=== PATIENT | male | born 1990 | race Hispanic/Latino ===

== ENCOUNTER 2017-01-29 17:28 | Emergency (ER) | payer OTHER ==
[2017-01-29 17:32] VITALS: BP 139/72; PULSE 97; RESP 18; TEMP 98.1; O2SAT 98
--- NOTE | 2017-01-29 17:39 | ED PDOC ---
Lower Extremity Pain/Injury Time Seen by Provider: 01/29/17 17:31 Chief Complaint (Nursing): Lower Extremity Problem/Injury Chief Complaint (Provider): Right Ankle Injury History Per: Patient History/Exam Limitations: no limitations Onset/Duration Of Symptoms: Hrs Current Symptoms Are (Timing): Still Present Additional Complaint(s): Lance Hdez is a 26 year old male that presents to the ED after he was skateboarding, lost his footing, and fell with his body weight onto his twisted right ankle. His pain radiates to his right dozier and he is currently unable to rotate his right ankle. Past Medical History Reviewed: Historical Data, Nursing Documentation, Vital Signs Vital Signs: Last Vital Signs Temp 98.1 F 01/29/17 17:29 Pulse 97 H 01/29/17 17:29 Resp 18 01/29/17 17:29 BP 139/72 01/29/17 17:29 Pulse Ox 98 01/29/17 17:29 - Surgical History Other surgeries: hernia repair - Family History Family History: States: Unknown Family Hx - Social History Current smoker - smoking cessation education provided: No Alcohol: Social Drugs: Denies - Allergies Allergies/Adverse Reactions: Allergies Allergy/AdvReac Type Severity Reaction Status Date / Time No Known Allergies Allergy Verified 01/29/17 17:29 Review of Systems Musculoskeletal: Positive for: Leg Pain (right ankle pain, right dozier pain) Physical Exam - Reviewed Nursing Documentation Reviewed: Yes Vital Signs Reviewed: Yes - Physical Exam Appears: Positive for: Non-toxic, No Acute Distress Head Exam: Positive for: ATRAUMATIC, NORMOCEPHALIC Skin: Positive for: Normal Color, Warm Cardiovascular/Chest: Positive for: Regular Rate, Rhythm. Negative for: Murmur Respiratory: Positive for: Normal Breath Sounds. Negative for: Wheezing Extremity: Positive for: Deformity (deformity of right lateral malleolus, radiates up to right dozier. ), Other (Abrasion to medial aspect of right malleolus. No fibular head pain.). Negative for: Normal ROM (limited ROM right ankle, unable to twist it. ) DTR - Ankle (R): 2+ DTR - Ankle (L): 2+ Neurologic/Psych: Positive for: Alert, quality rn II-XII, Oriented - ECG O2 Sat by Pulse Oximetry: 98 (RA) Pulse Ox Interpretation: Normal - Radiology X-Ray: Interpreted by Me (fracture noted to fibula(spiral/angulated/displaced), post. malleous(avulsion fx)) - Physician Consult Information Outcome Of Conversation: MD aashish-consulted podiatry consulted Medical Decision Making Medical Decision Making: Impression: Right Ankle Injury Plan: * X-Ray Right Ankle * X-Ray Right Tibia * X-Ray Right Fibula * Ibuprofen 600 mg PO * Reevaluation 18:36 Fracture noted to right posterior malleolus as well as a fibular spiral fracture that is angulated. No evidence of Compartment Syndrome. Patient is comfortable with Ibuprofen 600 mg. Patient states that he prefers to go to [facility], as he has an orthopedic doctor there. Dr. Tafoya was consulted-and was told that pt wants to have orthopedic evaluation in [place]-suggests knee immobilize and crutches. Patient agreed to use knee mobilizer, and advised to get consult for ankle. Patient will be given copies of images and will follow up with an orthopedic group at [place]. MD trevor made aware. 19:10 Patient given Morphine 4 mg IM. Will be sent home with his father. Patient is stable for discharge. Scribe Attestation: Documented by Mary Kay Moore, acting as a scribe for Rebeka Palumbo PA-C. Provider Scribe Attestation: All medical record entries made by the Scribe were at my direction and personally dictated by me. I have reviewed the chart and agree that the record accurately reflects my personal performance of the history, physical exam, medical decision making, and the department course for this patient. I have also personally directed, reviewed, and agree with the discharge instructions and disposition. Disposition - Clinical Impression Clinical Impression: Ankle fracture, Fibula fracture - Patient ED Disposition Is Patient to be Admitted: No - Disposition Referrals: Nursing [facility] [Outside] Olinda Tafoya MD [Staff Provider] - Disposition Time: 19:10 Condition: STABLE Instructions: Leg Fracture (ED), Ankle Fracture (ED), ORIF (GEN)
--- NOTE | 2017-01-30 11:49 | RAD ---
PROCEDURE: Right Ankle Radiographs. HISTORY: Ankle Pain. No history of recent/ related trauma provided COMPARISON: None FINDINGS: BONES: Normal. No fracture. JOINTS: Normal. No osteoarthritis. Ankle mortise maintained. Talar dome intact SOFT TISSUES: Normal. OTHER FINDINGS: None. IMPRESSION: No acute findings related to/accounting for the clinical presentation.
--- NOTE | 2017-01-30 11:55 | RAD ---
PROCEDURE: Right tibia and fibula HISTORY: injury + pain skateboarding COMPARISON: None available. TECHNIQUE: Frontal and lateral views obtained. FINDINGS: BONES: Oblique midshaft fracture right fibula. Major fracture fragments are anatomically aligned. JOINT SPACES: Unremarkable. OTHER FINDINGS: None. IMPRESSION: Acute nondisplaced fracture midshaft right fibula.
== END 2017-01-29 19:28 | disposition home or self-care (01) ==
LOC: H.ER 17:28
DX: S82.401A Unspecified fracture of shaft of right fibula, initial encounter for closed fracture (principal); S82.891A Other fracture of right lower leg, initial encounter for closed fracture; W19.XXXA Unspecified fall, initial encounter